=== PATIENT | female | born 1995 | race Two or more races ===

== ENCOUNTER 2019-10-03 18:34 | Emergency (ER) | payer BC, OTHER ==
[~2019-10-03] VITALS: Ht 172.7 cm; Wt 77.1 kg
[2019-10-03] MEDS ORDERED: ACETAMINOPHEN 325 MG TAB PO ONE (19:00)
[2019-10-03 19:48] VITALS: BP 112/79
== END 2019-10-03 20:39 | disposition home or self-care (01) ==
LOC: ER 18:40
DX: U07.1 COVID-19 (principal)
CPT/HCPCS: 71045; 87635